=== PATIENT | female | born 1955 | race Caucasian/White ===

== ENCOUNTER 2022-04-04 11:50 | Emergency (ER) | payer MEDICAID, MEDICARE ==
[2022-04-04] MEDS ORDERED: Ketorolac 60 MG/2 ML SDV IM ONE (12:21)
[2022-04-04] MEDS ORDERED: Clindamycin HCl 150 MG Cap PO ONE (12:21)
== END 2022-04-04 12:45 | disposition home or self-care (01) ==
LOC: JD.ED 11:50
DX: K04.7 Periapical abscess without sinus (principal); I25.10 Atherosclerotic heart disease of native coronary artery without angina pectoris; E78.00 Pure hypercholesterolemia, unspecified; I10 Essential (primary) hypertension; E66.9 Obesity, unspecified; Z68.34 Body mass index [BMI] 34.0-34.9, adult; Z88.0 Allergy status to penicillin; Z88.2 Allergy status to sulfonamides; Z79.02 Long term (current) use of antithrombotics/antiplatelets; Z79.899 Other long term (current) drug therapy; Z86.16 Personal history of COVID-19
CPT/HCPCS: 96372; 99282; A9270; J1885